=== PATIENT | female | born 1940 | race Caucasian/White ===

== ENCOUNTER 2020-11-18 07:29 | Emergency (ER) | payer MEDICARE, OTHER ==
[~2020-11-18] VITALS: Ht 154.9 cm; Wt 53.2 kg
[2020-11-18 08:57] LABS: BASOPHILS % (AUTO) 0.5 % (0-1); EOSINOPHILS % (AUTO) 0.2 % (0-6); HEMOGLOBIN 12.8 g/dl (12.0-16.0); LYMPHOCYTES # (AUTO) 0.5 X10'3 (1.1-4.8); LYMPHOCYTES % (AUTO) 5.3 % (21-51); MEAN CORPUSCULAR HEMOGLOBIN 29.5 PG (27.0-31.0); MEAN CORPUSCULAR HGB CONC 32.9 g/dL (33.0-36.5); MEAN CORPUSCULAR VOLUME 89.7 FL (78-98); MEAN PLATELET VOLUME 8.3 FL (7.4-10.4); MONOCYTES # (AUTO) 0.5 X10'3 (0-0.9); MONOCYTES % (AUTO) 4.7 % (2-12); NEUTROPHILS % (AUTO) 89.3 % (42-75); PLATELET COUNT 274 X10'3 (140-440); RED BLOOD COUNT 4.35 X10'6 (4.20-5.60); RED CELL DISTRIBUTION WIDTH 14.3 % (11.5-14.5); WHITE BLOOD COUNT 10.1 X10'3 (4.5-11.0)
[2020-11-18 09:16] LABS: ALANINE AMINOTRANSFERASE 20 U/L (12-78); ALBUMIN 3.3 G/DL (3.4-5.0); ALBUMIN/GLOBULIN RATIO 0.9 (1.1-1.5); ALKALINE PHOSPHATASE 79 IU/L (46-116); AMYLASE 52 U/L (25-115); ANION GAP 18 (8-16); ASPARTATE AMINO TRANSFERASE 15 U/L (10-37); BILIRUBIN,TOTAL 0.3 MG/DL (0.1-1.0); BLOOD UREA NITROGEN 22 MG/DL (7-18); BUN/CREATININE RATIO 13.1 (6.6-38.0); CALCIUM 10.5 MG/DL (8.5-10.1); CHLORIDE 102 MMOL/L (99-107); CREATININE 1.68 MG/DL (0.40-0.90); GLUCOSE 208 MG/DL (70-104); LIPASE 166 U/L (73-393); SODIUM 139 MMOL/L (135-145); TOTAL CARBON DIOXIDE 19.3 MMOL/L (24-32); TOTAL PROTEIN 7.1 G/DL (6.4-8.2); eGFR 29 ML/MIN
[2020-11-18 12:40] VITALS: BP 129/63
[2020-11-18 13:30] LABS: CLARITY,URINE CLEAR (Clear); COLOR,URINE YELLOW (Yellow); GLUCOSE, URINE NEGATIVE (Neg); KETONES,URINE TRACE mg/dl (Neg); LEUKOCYTE ESTERASE ,URINE NEGATIVE (Neg); NITRITES, URINE NEGATIVE (Neg); OCCULT BLOOD,URINE MODERATE (Neg); PH,URINE 5.5 (4.8-8.0); PROTEIN,URINE NEGATIVE (Neg); UROBILINOGEN,URINE 0.2 E.U/dL (0.2-1.0)
[2020-11-18 13:32] LABS: UA COLLECTION TYPE VOIDED
[2020-11-18 13:35] LABS: BACTERIA,URINE NONE SEEN /HPF (Neg); MUCUS STRANDS NONE SEEN /LPF (Neg); SQUAMOUS EPITHELIAL CELL,UR FEW /LPF (FEW); WBC,URINE 0-4 /HPF (0-4)
== END 2020-11-18 14:06 | disposition home or self-care (01) ==
LOC: ER 07:29
DX: N20.0 Calculus of kidney (principal); R10.30 Lower abdominal pain, unspecified; Z87.442 Personal history of urinary calculi
CPT/HCPCS: 36415; 74176; 80053; 81001; 82150; 83690; 85025; 99284

== ENCOUNTER 2022-09-22 22:12 | Emergency (ER) | payer MEDICARE, OTHER ==
[~2022-09-22] VITALS: Ht 154.9 cm; Wt 47.2 kg
[2022-09-22 22:15] VITALS: BP 175/77
[2022-09-22 23:17] LABS: BASOPHILS # (AUTO) 0.1 X10'3 (0-0.2); EOSINOPHILS # (AUTO) 0.1 X10'3 (0-0.9); EOSINOPHILS % (AUTO) 1.6 % (0-6); HEMATOCRIT 40.4 % (35.0-45.0); HEMOGLOBIN 13.4 g/dl (12.0-16.0); LYMPHOCYTES # (AUTO) 1.5 X10'3 (1.1-4.8); LYMPHOCYTES % (AUTO) 21.8 % (21-51); MEAN CORPUSCULAR HEMOGLOBIN 29.6 PG (27.0-31.0); MEAN CORPUSCULAR HGB CONC 33.1 g/dL (33.0-36.5); MEAN CORPUSCULAR VOLUME 89.3 FL (78-98); MEAN PLATELET VOLUME 8.7 FL (7.4-10.4); MONOCYTES # (AUTO) 0.6 X10'3 (0-0.9); MONOCYTES % (AUTO) 9.1 % (2-12); NEUTROPHILS # (AUTO) 4.5 X10'3 (1.8-7.7); NEUTROPHILS % (AUTO) 66.5 % (42-75); PLATELET COUNT 290 X10'3 (140-440); RED BLOOD COUNT 4.52 X10'6 (4.20-5.60); RED CELL DISTRIBUTION WIDTH 14.7 % (11.5-14.5); WHITE BLOOD COUNT 6.7 X10'3 (4.5-11.0)
[2022-09-22 23:34] LABS: ALANINE AMINOTRANSFERASE 20 U/L (12-78); ALBUMIN 3.9 G/DL (3.4-5.0); ALBUMIN/GLOBULIN RATIO 1.1 (1.1-1.5); ALKALINE PHOSPHATASE 68 IU/L (46-116); ANION GAP 15 (8-16); ASPARTATE AMINO TRANSFERASE 16 U/L (10-37); BILIRUBIN,TOTAL 0.4 MG/DL (0.1-1.0); BLOOD UREA NITROGEN 29 MG/DL (7-18); BUN/CREATININE RATIO 29.9 (10.0-20.0); CALCIUM 10.1 MG/DL (8.5-10.1); CHLORIDE 102 MMOL/L (99-107); CREATININE 0.97 MG/DL (0.40-0.90); GLUCOSE 122 MG/DL (70-104); LIPASE 196 U/L (73-393); POTASSIUM 4.2 MMOL/L (3.5-5.1); SODIUM 138 MMOL/L (135-145); TOTAL CARBON DIOXIDE 21.4 MMOL/L (24-32); TOTAL PROTEIN 7.4 G/DL (6.4-8.2); eGFR 55 ML/MIN
[2022-09-22 23:50] LABS: CLARITY,URINE CLEAR (Clear); COLOR,URINE YELLOW (Yellow); GLUCOSE, URINE NEGATIVE (Neg); KETONES,URINE 40 mg/dl (Neg); LEUKOCYTE ESTERASE ,URINE NEGATIVE (Neg); NITRITES, URINE NEGATIVE (Neg); OCCULT BLOOD,URINE NEGATIVE (Neg); PROTEIN,URINE NEGATIVE (Neg); UROBILINOGEN,URINE 0.2 E.U/dL (0.2-1.0)
[2022-09-22 23:51] LABS: UA COLLECTION TYPE CLN CATCH MIDSTREAM
[2022-09-24] MEDS ORDERED: METF-438 PO (11:00)
[2022-09-24] MEDS ORDERED: LOSA25TA96 PO (11:00)
[2022-09-24] MEDS ORDERED: SIMV-42 PO (11:00)
== END 2022-09-23 02:01 | disposition left against medical advice (07) ==
LOC: ER 22:12
DX: R10.9 Unspecified abdominal pain (principal); Z53.21 Procedure and treatment not carried out due to patient leaving prior to being seen by health care provider
CPT/HCPCS: 36415; 80053; 81003; 83690; 85025; 99281

== ENCOUNTER 2023-02-07 16:11 | Inpatient (IN) | payer MEDICARE, OTHER ==
[~2023-02-07] VITALS: Ht 154.9 cm; Wt 43.8 kg
[~2023-02-07 16:11] MED LIST: COR3.125T PO; METF-438 PO; SIMV-42 PO
[2023-02-07 18:28] LABS: BASOPHILS % (AUTO) 0.5 % (0-1); EOSINOPHILS % (AUTO) 0.3 % (0-6); HEMATOCRIT 40.6 % (35.0-45.0); HEMOGLOBIN 13.3 g/dl (12.0-16.0); MEAN CORPUSCULAR HEMOGLOBIN 28.7 PG (27.0-31.0); MEAN CORPUSCULAR HGB CONC 32.8 g/dL (33.0-36.5); MEAN CORPUSCULAR VOLUME 87.4 FL (78-98); MEAN PLATELET VOLUME 8.7 FL (7.4-10.4); MONOCYTES # (AUTO) 0.7 X10'3 (0-0.9); MONOCYTES % (AUTO) 8.9 % (2-12); NEUTROPHILS # (AUTO) 6.4 X10'3 (1.8-7.7); NEUTROPHILS % (AUTO) 78.3 % (42-75); PLATELET COUNT 337 X10'3 (140-440); RED BLOOD COUNT 4.65 X10'6 (4.20-5.60); RED CELL DISTRIBUTION WIDTH 13.6 % (11.5-14.5); WHITE BLOOD COUNT 8.2 X10'3 (4.5-11.0)
[2023-02-07 18:33] LABS: ALANINE AMINOTRANSFERASE 15 U/L (12-78); ALBUMIN 3.7 G/DL (3.4-5.0); ALKALINE PHOSPHATASE 63 IU/L (46-116); ANION GAP 10 (8-16); ASPARTATE AMINO TRANSFERASE 15 U/L (10-37); BILIRUBIN,TOTAL 0.4 MG/DL (0.1-1.0); BLOOD UREA NITROGEN 22 MG/DL (7-18); BUN/CREATININE RATIO 16.5 (10.0-20.0); CALCIUM 10.7 MG/DL (8.5-10.1); CHLORIDE 96 MMOL/L (99-107); CREATININE 1.33 MG/DL (0.40-0.90); GLUCOSE 140 MG/DL (70-104); LIPASE 53 U/L (16-77); POTASSIUM 4.7 MMOL/L (3.5-5.1); SODIUM 129 MMOL/L (135-145); TOTAL CARBON DIOXIDE 22.9 MMOL/L (24-32); TOTAL PROTEIN 7.5 G/DL (6.4-8.2); eCRCL 21 ML/MIN; eGFR 38 ML/MIN
[2023-02-07] MEDS ORDERED: normal saline 1000ML IV soln IVB ONE (22:05)
[2023-02-07] MEDS ORDERED: ondansetron/PF 4mg/2ml inj IV ONE (22:05)
[2023-02-07] MEDS ORDERED: morphine 4 MG/ML inj SYRINge IV ONE (22:05)
[2023-02-08] MEDS ORDERED: acetaminophen 325mg tablet PO PRN ×2 (00:05)
[2023-02-08] MEDS ORDERED: bisacodyl 10mg suppository rectal RC PRN (00:05)
[2023-02-08] MEDS ORDERED: acetaminophen 650mg rectal suppository RC PRN (00:05)
[2023-02-08] MEDS ORDERED: ondansetron/PF 4mg/2ml inj IV PRN (00:05)
[2023-02-08] MEDS ORDERED: diphenhydrAMINE 25mg capsule PO PRN (00:05)
[2023-02-08] MEDS ORDERED: ondansetron 4mg rapidly disintigrating tab PO PRN (00:05)
[2023-02-08] MEDS ORDERED: magnesium hydroxide 30ml (MOM) UD suspension PO PRN (00:05)
[2023-02-08] MEDS ORDERED: HYDROcodone/acetaminophen 5mg/325mg tablet PO PRN (00:05)
[2023-02-08] MEDS ORDERED: mag hydrox/Alum hydrox/simeth 30ml oral suspension PO PRN (00:05)
[2023-02-08] MEDS ORDERED: diphenhydrAMINE 50 mg/ml inj IV PRN (00:05)
[2023-02-08] MEDS ORDERED: morphine 2 MG/ML inj. syringe IV PRN (00:05)
[2023-02-08] MEDS ORDERED: insulin Lispro (HumaLOG) vial - multi-dose SQ SCH (00:10)
[2023-02-08] MEDS ORDERED: glucagon, human recombinant 1mg kit SUBCUT PRN (00:10)
[2023-02-08] MEDS ORDERED: MESSAGE TO PHARMACY PO ONE (00:10)
[2023-02-08] MEDS ORDERED: DEXTROSE 15 GM of carb/4 tabs (each vial/BOTTLE has 4 tablets) PO PRN ×2 (00:10)
[2023-02-08] MEDS ORDERED: dextrose 50%-water 50ml dispensing syringe IV PRN ×2 (00:10)
[2023-02-08] MEDS: normal saline 1000ml 1,000 ML IV SCH ×3 (01:29→15:04)
[2023-02-08 03:20] LABS: HEMOGLOBIN A1C 6.2 % (4.5-6.2)
[2023-02-08 03:21] LABS: APTT 25 SECONDS (22-32); PROTHROMBIN TIME 10.9 SECONDS (9.0-12.0)
[2023-02-08 03:33] LABS: CREATINE KINASE 27 U/L (26-192); PHOSPHORUS 4.9 MG/DL (2.3-4.5); PRO BRAIN NATRIURETIC PEPTIDE 345 PG/ML (0-450); THYROID STIMULATING HORMONE 1.47 ulU/ml (0.34-4.50)
[2023-02-08 05:39] LABS: BILIRUBIN,URINE NEGATIVE (Neg); CLARITY,URINE CLEAR (Clear); COLOR,URINE YELLOW (Yellow); GLUCOSE, URINE NEGATIVE (Neg); KETONES,URINE 15 mg/dl (Neg); LEUKOCYTE ESTERASE ,URINE NEGATIVE (Neg); NITRITES, URINE NEGATIVE (Neg); OCCULT BLOOD,URINE NEGATIVE (Neg); PROTEIN,URINE NEGATIVE (Neg); UROBILINOGEN,URINE 0.2 E.U/dL (0.2-1.0)
[2023-02-08 05:41] LABS: UA COLLECTION TYPE CLN CATCH MIDSTREAM
[2023-02-08] MEDS ORDERED: docusate sod 100mg capsule PO SCH (08:00)
[2023-02-08] MEDS: pantoprazole 40MG/NS 100ML BAG 100 ML IV SCH (08:26)
[2023-02-08] MEDS ORDERED: docusate sodium 100mg/10ml UD cup NG SCH (08:36)
[2023-02-08 08:45] VITALS: RESP 16
[2023-02-08 09:13] VITALS: BP 124/58; PULSE 81; RESP 20; TEMP 99; O2SAT 94
[2023-02-08 10:00] VITALS: BP 139/55; PULSE 82; RESP 18; TEMP 97.7; O2SAT 93
[2023-02-08 19:35] LABS: BASOPHILS # (AUTO) 0.2 X10'3 (0-0.2); BASOPHILS % (AUTO) 1.9 % (0-1); EOSINOPHILS % (AUTO) 0.5 % (0-6); HEMOGLOBIN 11.7 g/dl (12.0-16.0); LYMPHOCYTES # (AUTO) 0.7 X10'3 (1.1-4.8); LYMPHOCYTES % (AUTO) 7.6 % (21-51); MEAN CORPUSCULAR HEMOGLOBIN 29.2 PG (27.0-31.0); MEAN CORPUSCULAR HGB CONC 33.5 g/dL (33.0-36.5); MEAN CORPUSCULAR VOLUME 87.1 FL (78-98); MEAN PLATELET VOLUME 8.4 FL (7.4-10.4); MONOCYTES # (AUTO) 0.7 X10'3 (0-0.9); MONOCYTES % (AUTO) 7.8 % (2-12); NEUTROPHILS # (AUTO) 7.6 X10'3 (1.8-7.7); NEUTROPHILS % (AUTO) 82.2 % (42-75); PLATELET COUNT 270 X10'3 (140-440); RED BLOOD COUNT 4.02 X10'6 (4.20-5.60); WHITE BLOOD COUNT 9.2 X10'3 (4.5-11.0)
[2023-02-08 19:49] LABS: ALANINE AMINOTRANSFERASE 10 U/L (12-78); ALBUMIN 2.9 G/DL (3.4-5.0); ALKALINE PHOSPHATASE 51 IU/L (46-116); ANION GAP 10 (8-16); ASPARTATE AMINO TRANSFERASE 14 U/L (10-37); BILIRUBIN,TOTAL 0.3 MG/DL (0.1-1.0); BLOOD UREA NITROGEN 14 MG/DL (7-18); BUN/CREATININE RATIO 16.5 (10.0-20.0); CALCIUM 8.8 MG/DL (8.5-10.1); CHLORIDE 104 MMOL/L (99-107); CREATININE 0.85 MG/DL (0.40-0.90); GLUCOSE 140 MG/DL (70-104); POTASSIUM 3.8 MMOL/L (3.5-5.1); SODIUM 135 MMOL/L (135-145); TOTAL PROTEIN 5.8 G/DL (6.4-8.2); eCRCL 33 ML/MIN; eGFR 64 ML/MIN
[2023-02-08] MEDS ORDERED: temazepam 15mg capsule PO PRN (21:00)
[2023-02-08 22:00] VITALS: BP 127/91; PULSE 79; RESP 14; TEMP 98.3; O2SAT 98
[2023-02-09] MEDS: normal saline 1000ml 1,000 ML IV SCH (04:44)
[2023-02-09 05:50] LABS: BASOPHILS % (AUTO) 0.4 % (0-1); EOSINOPHILS % (AUTO) 0.6 % (0-6); HEMATOCRIT 35.8 % (35.0-45.0); HEMOGLOBIN 11.9 g/dl (12.0-16.0); LYMPHOCYTES # (AUTO) 0.8 X10'3 (1.1-4.8); LYMPHOCYTES % (AUTO) 10.3 % (21-51); MEAN CORPUSCULAR HEMOGLOBIN 29.3 PG (27.0-31.0); MEAN CORPUSCULAR HGB CONC 33.3 g/dL (33.0-36.5); MEAN PLATELET VOLUME 8.9 FL (7.4-10.4); MONOCYTES # (AUTO) 0.7 X10'3 (0-0.9); NEUTROPHILS # (AUTO) 5.9 X10'3 (1.8-7.7); NEUTROPHILS % (AUTO) 78.7 % (42-75); PLATELET COUNT 259 X10'3 (140-440); RED BLOOD COUNT 4.07 X10'6 (4.20-5.60); RED CELL DISTRIBUTION WIDTH 13.8 % (11.5-14.5); WHITE BLOOD COUNT 7.5 X10'3 (4.5-11.0)
[2023-02-09 05:54] LABS: ALANINE AMINOTRANSFERASE 11 U/L (12-78); ALBUMIN 2.9 G/DL (3.4-5.0); ALKALINE PHOSPHATASE 51 IU/L (46-116); ANION GAP 12 (8-16); ASPARTATE AMINO TRANSFERASE 14 U/L (10-37); BILIRUBIN,TOTAL 0.3 MG/DL (0.1-1.0); BLOOD UREA NITROGEN 11 MG/DL (7-18); BUN/CREATININE RATIO 15.3 (10.0-20.0); CHLORIDE 104 MMOL/L (99-107); CREATININE 0.72 MG/DL (0.40-0.90); GLUCOSE 133 MG/DL (70-104); POTASSIUM 4.2 MMOL/L (3.5-5.1); SODIUM 136 MMOL/L (135-145); TOTAL CARBON DIOXIDE 20.1 MMOL/L (24-32); TOTAL PROTEIN 5.9 G/DL (6.4-8.2); eCRCL 40 ML/MIN; eGFR 77 ML/MIN
[2023-02-09 06:00] VITALS: BP 149/65; PULSE 73; RESP 16; TEMP 99.1; O2SAT 98
[2023-02-09] MEDS: pantoprazole 40MG/NS 100ML BAG 100 ML IV SCH (08:04)
[2023-02-09 08:05] VITALS: RESP 16; O2SAT 98
[2023-02-09 10:00] VITALS: BP 98/62; PULSE 86; RESP 20; TEMP 98.3; O2SAT 96
[2023-02-09] MEDS: carVEDilol 3.125mg tablet PO SCH ×2 (11:52→19:38)
[2023-02-09 12:22] VITALS: BP 153/74; PULSE 86; RESP 14; TEMP 98.4; O2SAT 96
[2023-02-09 18:00] VITALS: BP 160/82; PULSE 76; RESP 11; TEMP 98.3; O2SAT 99
[2023-02-09 22:00] VITALS: BP 141/100; PULSE 80; RESP 15; TEMP 98.3; O2SAT 99
[2023-02-10] MEDS: normal saline 1000ml 1,000 ML IV SCH ×2 (04:42→10:11)
[2023-02-10 06:00] VITALS: BP 148/77; PULSE 74; RESP 14; TEMP 98.6; O2SAT 97
[2023-02-10 06:26] LABS: ALANINE AMINOTRANSFERASE 11 U/L (12-78); ALBUMIN 2.6 G/DL (3.4-5.0); ALBUMIN/GLOBULIN RATIO 0.9 (1.1-1.5); ALKALINE PHOSPHATASE 45 IU/L (46-116); ANION GAP 12 (8-16); ASPARTATE AMINO TRANSFERASE 11 U/L (10-37); BILIRUBIN,TOTAL 0.3 MG/DL (0.1-1.0); BLOOD UREA NITROGEN 12 MG/DL (7-18); BUN/CREATININE RATIO 18.8 (10.0-20.0); CALCIUM 8.6 MG/DL (8.5-10.1); CHLORIDE 106 MMOL/L (99-107); CREATININE 0.64 MG/DL (0.40-0.90); GLUCOSE 95 MG/DL (70-104); POTASSIUM 3.5 MMOL/L (3.5-5.1); SODIUM 137 MMOL/L (135-145); TOTAL CARBON DIOXIDE 19.4 MMOL/L (24-32); TOTAL PROTEIN 5.5 G/DL (6.4-8.2); eCRCL 44 ML/MIN; eGFR 88 ML/MIN
[2023-02-10 06:36] LABS: BASOPHILS % (AUTO) 0.5 % (0-1); EOSINOPHILS # (AUTO) 0.1 X10'3 (0-0.9); EOSINOPHILS % (AUTO) 1.4 % (0-6); HEMOGLOBIN 11.9 g/dl (12.0-16.0); LYMPHOCYTES # (AUTO) 1.2 X10'3 (1.1-4.8); LYMPHOCYTES % (AUTO) 13.5 % (21-51); MEAN CORPUSCULAR HEMOGLOBIN 29.7 PG (27.0-31.0); MEAN CORPUSCULAR HGB CONC 33.9 g/dL (33.0-36.5); MEAN CORPUSCULAR VOLUME 87.6 FL (78-98); MEAN PLATELET VOLUME 8.8 FL (7.4-10.4); MONOCYTES # (AUTO) 0.8 X10'3 (0-0.9); NEUTROPHILS # (AUTO) 6.5 X10'3 (1.8-7.7); NEUTROPHILS % (AUTO) 75.6 % (42-75); PLATELET COUNT 263 X10'3 (140-440); RED CELL DISTRIBUTION WIDTH 13.9 % (11.5-14.5); WHITE BLOOD COUNT 8.6 X10'3 (4.5-11.0)
[2023-02-10 10:00] VITALS: BP 114/78; PULSE 84; RESP 18; TEMP 98.2; O2SAT 98
[2023-02-10] MEDS: pantoprazole 40MG/NS 100ML BAG 100 ML IV SCH (10:10)
[2023-02-10] MEDS: carVEDilol 3.125mg tablet PO SCH ×2 (10:11→19:54)
[2023-02-10] MEDS: atorvastatin 20mg tablet PO SCH (10:11)
[2023-02-10] MEDS ORDERED: LOSA25TA41 PO (13:09)
[2023-02-10] MEDS ORDERED: OXYB5TAB16 PO (13:09)
[2023-02-10 18:00] VITALS: BP 149/42; PULSE 67; RESP 16; TEMP 98.1; O2SAT 93
[2023-02-10 20:00] VITALS: RESP 16; O2SAT 98
[2023-02-10] MEDS ORDERED: DEXTROSE 15 GM of carb/4 tabs (each vial/BOTTLE has 4 tablets) PO PRN ×2 (20:30)
[2023-02-10] MEDS ORDERED: dextrose 50%-water 50ml dispensing syringe IV PRN ×2 (20:30)
[2023-02-10] MEDS ORDERED: glucagon, human recombinant 1mg kit SUBCUT PRN (20:30)
[2023-02-10 22:00] VITALS: BP 127/55; PULSE 66; RESP 18; TEMP 97.4; O2SAT 98
[2023-02-11] MEDS: dextrose 5%-normal saline 1,000 ML IV SCH ×2 (05:04→18:15)
[2023-02-11 06:00] VITALS: BP 137/66; PULSE 79; RESP 14; TEMP 97.4; O2SAT 98
[2023-02-11 06:49] LABS: BASOPHILS # (AUTO) 0.1 X10'3 (0-0.2); BASOPHILS % (AUTO) 0.7 % (0-1); EOSINOPHILS # (AUTO) 0.2 X10'3 (0-0.9); EOSINOPHILS % (AUTO) 2.2 % (0-6); HEMATOCRIT 33.4 % (35.0-45.0); HEMOGLOBIN 11.2 g/dl (12.0-16.0); LYMPHOCYTES % (AUTO) 12.4 % (21-51); MEAN CORPUSCULAR HEMOGLOBIN 29.5 PG (27.0-31.0); MEAN CORPUSCULAR HGB CONC 33.5 g/dL (33.0-36.5); MEAN CORPUSCULAR VOLUME 87.9 FL (78-98); MEAN PLATELET VOLUME 8.4 FL (7.4-10.4); MONOCYTES # (AUTO) 0.7 X10'3 (0-0.9); MONOCYTES % (AUTO) 8.6 % (2-12); NEUTROPHILS # (AUTO) 6.1 X10'3 (1.8-7.7); NEUTROPHILS % (AUTO) 76.1 % (42-75); PLATELET COUNT 249 X10'3 (140-440); WHITE BLOOD COUNT 8.1 X10'3 (4.5-11.0)
[2023-02-11 07:13] LABS: ALANINE AMINOTRANSFERASE 10 U/L (12-78); ALBUMIN 2.4 G/DL (3.4-5.0); ALBUMIN/GLOBULIN RATIO 0.9 (1.1-1.5); ALKALINE PHOSPHATASE 42 IU/L (46-116); ANION GAP 12 (8-16); ASPARTATE AMINO TRANSFERASE 15 U/L (10-37); BILIRUBIN,TOTAL 0.4 MG/DL (0.1-1.0); BLOOD UREA NITROGEN 14 MG/DL (7-18); CALCIUM 8.4 MG/DL (8.5-10.1); CHLORIDE 110 MMOL/L (99-107); CREATININE 0.56 MG/DL (0.40-0.90); GLUCOSE 93 MG/DL (70-104); POTASSIUM 3.3 MMOL/L (3.5-5.1); SODIUM 139 MMOL/L (135-145); TOTAL CARBON DIOXIDE 17.5 MMOL/L (24-32); TOTAL PROTEIN 5.2 G/DL (6.4-8.2); eCRCL 51 ML/MIN; eGFR > 90 ML/MIN
[2023-02-11] MEDS ORDERED: potassium Cl 40MEQ/1/2NS 520ml 520 ML IV PRN (07:45)
[2023-02-11] MEDS ORDERED: magnesium 4gm in 100ml NS 100 ML IV PRN (07:45)
[2023-02-11] MEDS ORDERED: potassium Cl 20 mEq SR tablet PO PRN ×2 (07:45)
[2023-02-11] MEDS ORDERED: magnesium 2GM in 50ml NS 50 ML IV PRN (07:45)
[2023-02-11] MEDS ORDERED: magnesium Cl slow-release 64mg tablet PO PRN (07:45)
[2023-02-11] MEDS: K and/or MAG REPLACEMENT MC SCH ×2 (08:00→20:00)
[2023-02-11 08:11] LABS: MAGNESIUM 1.6 MG/DL (1.5-2.4)
[2023-02-11 10:00] VITALS: BP 151/55; PULSE 74; RESP 12; TEMP 98.8; O2SAT 100
[2023-02-11] MEDS: atorvastatin 20mg tablet PO SCH (11:14)
[2023-02-11] MEDS: carVEDilol 3.125mg tablet PO SCH ×2 (11:14→21:01)
[2023-02-11] MEDS: pantoprazole 40MG/NS 100ML BAG 100 ML IV SCH (11:23)
[2023-02-11 18:00] VITALS: BP 112/64; PULSE 71; RESP 16; TEMP 97.9; O2SAT 99
[2023-02-11 20:00] VITALS: RESP 16; O2SAT 99
[2023-02-11] MEDS ORDERED: POTASSIUM BICARB 20meq eff tab 20 MEQ TABLET.EFF PO PRN (20:20)
[2023-02-11] MEDS: diatr meglu/diatrizoate 30ml oral sol.-(3 dose) bottle PO SCH (21:01)
[2023-02-11 22:00] VITALS: BP 137/53; PULSE 57; RESP 18; TEMP 98.1; O2SAT 99
[2023-02-12 06:00] VITALS: BP 144/62; PULSE 64; TEMP 97.5; O2SAT 98
[2023-02-12 07:06] LABS: BASOPHILS % (AUTO) 0.6 % (0-1); EOSINOPHILS # (AUTO) 0.3 X10'3 (0-0.9); EOSINOPHILS % (AUTO) 4.8 % (0-6); HEMOGLOBIN 11.3 g/dl (12.0-16.0); LYMPHOCYTES # (AUTO) 1.3 X10'3 (1.1-4.8); LYMPHOCYTES % (AUTO) 20.2 % (21-51); MEAN CORPUSCULAR HGB CONC 33.3 g/dL (33.0-36.5); MEAN CORPUSCULAR VOLUME 87.2 FL (78-98); MEAN PLATELET VOLUME 8.1 FL (7.4-10.4); MONOCYTES # (AUTO) 0.7 X10'3 (0-0.9); MONOCYTES % (AUTO) 11.5 % (2-12); NEUTROPHILS # (AUTO) 3.9 X10'3 (1.8-7.7); NEUTROPHILS % (AUTO) 62.9 % (42-75); PLATELET COUNT 249 X10'3 (140-440); RED CELL DISTRIBUTION WIDTH 14.5 % (11.5-14.5); WHITE BLOOD COUNT 6.2 X10'3 (4.5-11.0)
[2023-02-12] MEDS: diatr meglu/diatrizoate 30ml oral sol.-(3 dose) bottle PO SCH ×2 (07:08→09:40)
[2023-02-12] MEDS: carVEDilol 3.125mg tablet PO SCH (07:08)
[2023-02-12] MEDS: atorvastatin 20mg tablet PO SCH (07:08)
[2023-02-12 07:18] LABS: ALANINE AMINOTRANSFERASE 12 U/L (12-78); ALBUMIN 2.4 G/DL (3.4-5.0); ALBUMIN/GLOBULIN RATIO 0.9 (1.1-1.5); ALKALINE PHOSPHATASE 42 IU/L (46-116); ANION GAP 7 (8-16); ASPARTATE AMINO TRANSFERASE 20 U/L (10-37); BILIRUBIN,TOTAL 0.3 MG/DL (0.1-1.0); BLOOD UREA NITROGEN 9 MG/DL (7-18); BUN/CREATININE RATIO 14.5 (10.0-20.0); CALCIUM 8.6 MG/DL (8.5-10.1); CHLORIDE 108 MMOL/L (99-107); CREATININE 0.62 MG/DL (0.40-0.90); GLUCOSE 137 MG/DL (70-104); MAGNESIUM 1.7 MG/DL (1.5-2.4); POTASSIUM 3.5 MMOL/L (3.5-5.1); SODIUM 138 MMOL/L (135-145); TOTAL PROTEIN 5.2 G/DL (6.4-8.2); eCRCL 46 ML/MIN; eGFR > 90 ML/MIN
[2023-02-12] MEDS: dextrose 5%-normal saline 1,000 ML IV SCH (07:42)
[2023-02-12 08:00] VITALS: RESP 16; RESP 18; O2SAT 96
[2023-02-12] MEDS ORDERED: pantoprazole 40mg Tablet.DR PO SCH (08:00)
[2023-02-12] MEDS: K and/or MAG REPLACEMENT MC SCH (08:00)
[2023-02-12 10:00] VITALS: BP 156/69; PULSE 58; RESP 16; TEMP 98.4; O2SAT 93
[2023-02-12] MEDS ORDERED: MAGN200T8 PO (13:02)
[2023-02-12] MEDS ORDERED: SIME80TA15 PO (13:02)
[2023-02-12] MEDS ORDERED: POTA-206 PO (13:02)
[2023-02-12] MEDS ORDERED: COR3.125T PO (13:02)
[2023-02-12] MEDS ORDERED: METF-436 PO (13:04)
== END 2023-02-12 14:30 | disposition home health service (06) | DRG 388 ==
LOC: ER 16:11 → ED HOLD 02-08 00:09 → ORTHO 4S 02-08 07:45
PROVIDERS: ADMIT Family Medicine; ATTEND Internal Medicine
PROC: 0D9670Z Drainage of Stomach with Drainage Device, Via Natural or Artificial Opening (ICD-10-PCS; principal; 2023-02-07)
DX: K56.609 Unspecified intestinal obstruction, unspecified as to partial versus complete obstruction (principal); E43 Unspecified severe protein-calorie malnutrition; N17.9 Acute kidney failure, unspecified; Z68.1 Body mass index [BMI] 19.9 or less, adult; I50.32 Chronic diastolic (congestive) heart failure; E87.1 Hypo-osmolality and hyponatremia; I48.91 Unspecified atrial fibrillation; E11.65 Type 2 diabetes mellitus with hyperglycemia; E78.00 Pure hypercholesterolemia, unspecified; F03.90 Unspecified dementia, unspecified severity, without behavioral disturbance, psychotic disturbance, mood disturbance, and anxiety; I11.0 Hypertensive heart disease with heart failure; Z85.42 Personal history of malignant neoplasm of other parts of uterus; Z91.041 Radiographic dye allergy status; Z90.710 Acquired absence of both cervix and uterus; Z98.891 History of uterine scar from previous surgery; Z87.440 Personal history of urinary (tract) infections; Z79.899 Other long term (current) drug therapy; Z79.84 Long term (current) use of oral hypoglycemic drugs
CPT/HCPCS: 36415; 70450; 71045; 74176; 80053; 81003; 82550; 82948; 83036; 83605; 83690; 83735; 83880; 84100; 84443; 84484; 85025; 85610; 85730; 87081; 97161; 97530; 99285; A6212; C9113; G0378; J1815; J2270; J2405; J3490; J7030; J7042; J7070; Q9963

== ENCOUNTER 2024-07-13 15:14 | Emergency (ER) | payer MEDICARE, OTHER ==
[~2024-07-13] VITALS: Ht 162.6 cm; Wt 50.0 kg
[~2024-07-13 15:14] MED LIST changes: +CARV3.1232 PO; -COR3.125T PO; +LOSA25TA41 PO; +MAGN200T8 PO; +OXYB5TAB21 PO; +POTA-206 PO
--- NOTE | 2024-07-13 16:40 | Physician Documentation ---
History of Present Illness ~ Chief Complaint: Bloody Stools Stated Complaint: R KNEE PAIN Time Seen by MD: 19:01 Primary Medical Doctor: WILLIAMS GREGORY HPI This 84-year-old female presents with 2-3 days of generalized abdominal pain along with one month of dark tarry stools. Patient additionally reports she has had chronic pain to her right knee and hip for the past three months which he has been taking [place] for and working with her primary care doctor. Also endorses taking 800 mg of ibuprofen regularly. Patient was history of GI bleeds and it was seen here a proximally 2-1/2 years ago with a very low platelets and anemia. She was a [employer] and refused all blood products it was sent home on hospice however she was done well up until this point. She was not on blood thinners Medication Reconciliation Allergies: Uncoded Allergies: CONTRAST DYE (Allergy, Intermediate, HIVES, 11/18/20) Scheduled Carvedilol (Carvedilol), 3.125 MG PO BID Losartan Potassium (Losartan Potassium), 1 TAB PO DAILY, (Reported) Magnesium Oxide (Mag-Oxide), 1 TAB PO DAILY Metformin HCl (Metformin HCl), 1 TAB PO BID, (Reported) Oxybutynin Chloride (Oxybutynin Chloride), 1 TAB PO BID, (Reported) Potassium Chloride (K-Dur), 1 TAB PO DAILY Simvastatin* (Zocor*), 1 TAB PO HS, (Reported) Past Medical History Past Medical History: High Cholesterol, Hypertension, Bowel Obstruction, Kidney Stones, UTI, Diabetes, *CANCER* Past Surgical History: abdominal surgery, , hysterectomy, orthopedic surgeries, other Patient History: CVA FH: colon cancer FH: mental illness MOTHER, Alcohol Use: None Drug Use: none Lives with: Spouse Lives In: Home Occupation: retired Review of Systems ROS All review of systems negative except as per HPI Physical Exam Vital Signs: Temperature: 97.6, Source: Temporal, Heart Rate: 76, Respiratory Rate: 18, BP: 139/109, Pulse Oximetry: 98, Weight: 50.000 Physical Exam General: Patient is awake, alert, oriented x4 in no acute distress Head: Normocephalic and atraumatic. Eyes: Conjunctival normal. EOMI. PERRL. ENT: Mucous membranes moist. Neck: Supple, trachea is midline. Chest: Clear to auscultation bilaterally without rales, rhonchi, or wheezes. There is no accessory muscle use or retractions. Cardiac: RRR without murmurs, gallops, or rubs. Abd: Soft, nondistended, mild diffuse tenderness to palpation without peritonitis Extremity: Right lower extremity with 2+ dorsalis pedis pulse and no deformity however pain with manipulation of both knee and hip. : Good rectal tone, black stools, guaiac negative Progress Results/Orders Results/Orders Orders - KENNETH CURRAN MD Ct Abdomen Pelvis (07/13/24 20:05) Completed Orders - KENNETH CURRAN MD Ondansetron Inj. (Zofran 4mg/2ml Vial) (07/13/24 19:20) Fentanyl/Pf (Fentanyl 0.05 Mg/Ml Syringe (07/13/24 19:20) Acetaminophen 1,000mg/100ml Iv (Ofirmev (07/13/24 19:20) Ct Abdomen Pelvis (07/13/24 20:05) Medications Received in ER Medications (Trade) Dose Ordered Sig/Sylvia Route PRN Reason Start Time Stop Time Status Last Admin Dose Admin (Zofran 4mg/2ml vial) 4 mg ONCE ONCE IV 07/13/24 19:20 07/13/24 19:21 DC 07/13/24 19:35 4 MG (fentaNYL 0.05 MG/ML syringe) 25 mcg ONCE ONCE IV 07/13/24 19:20 07/13/24 19:21 DC 07/13/24 19:36 25 MCG Acetaminophen 100 ml @ 400 mls/hr ONCE ONCE IV 07/13/24 19:20 07/13/24 19:34 DC 07/13/24 19:36 400 MLS/HR Vital Signs 07/13/24 07/13/24 07/13/24 07/13/24 15:50 18:46 18:50 19:43 Temp 97.6 Pulse 76 73 69 Resp 18 15 16 17 B/P (MAP) 139/109 151/95 (113) 151/63 (92) Pulse Ox 98 99 99 07/13/24 20:53 Resp 14 Laboratory Tests Test 07/13/24 16:59 07/13/24 19:03 White Blood Count 6.4 Red Blood Count 4.43 Hemoglobin 13.3 Hematocrit 39.6 Mean Corpuscular Volume 89.4 Mean Corpuscular Hemoglobin 29.9 Mean Corpuscular Hemoglobin Concent 33.5 Red Cell Distribution Width 13.8 Platelet Count 269 Mean Platelet Volume 8.0 Neutrophils (%) (Auto) 53.6 Lymphocytes (%) (Auto) 34.7 Monocytes (%) (Auto) 8.3 Eosinophils (%) (Auto) 2.1 Basophils (%) (Auto) 1.3 H Neutrophils # (Auto) 3.4 Lymphocytes # (Auto) 2.2 Monocytes # (Auto) 0.5 Eosinophils # (Auto) 0.1 Basophils # (Auto) 0.1 CBC Comment Basophilic Stippling Sodium Level 140 Potassium Level 3.8 Chloride Level 107 Carbon Dioxide Level 21.2 L Anion Gap 12 Blood Urea Nitrogen 14 Creatinine 0.92 H Estimated GFR/1.73 m2 58 BUN/Creatinine Ratio 15.2 Glucose Level 114 H Calcium Level 9.5 Total Bilirubin 0.6 Aspartate Amino Transf (AST/SGOT) 21 Alanine Aminotransferase (ALT/SGPT) 21 Alkaline Phosphatase 63 Total Protein 7.3 Albumin 3.9 Globulin 3.4 Albumin/Globulin Ratio 1.1 Lipase 36 Chemistry Comments Urine Specimen Description Cln catch midstream Urine Color Yellow Urine Clarity Cloudy Urine pH 7.5 Urine Specific [place] 1.020 Urine Protein 30 H Urine Glucose (UA) Negative Urine Ketones >=80 Urine Occult Blood Trace-intact Urine Nitrite Negative Urine Bilirubin Negative Urine Urobilinogen 0.2 Urine Leukocyte Esterase Trace H Urine RBC 3-10 Urine WBC 5-10 H Urine Squamous Epithelial Cells Few Urine Amorphous Phosphates 4+ Urine Bacteria 1+ Urine Culture Indicated Indicated Volume Urine Centrifuged 10 ml Urine Comment Microbiology Date/Time Source Procedure Growth Status 07/13/24 19:22 Urine Clean Catch Midstream Urine Culture - Preliminary Culture received. Resulted Medical Decision Making Findings Patient presented to the emergency room with chronic leg pain as well as concerns for black stools. Differentials include but are not limited to upper GI bleed, medication side effect, lower GI bleed, anemia therefore emergent labs ordered. Labs were reassuring for no anemia or elevation of BUN. Guaiac negative and with these three findings I do not feel patient was suffering from GI bleed. Patient was being supplemented iron which could be contributing to patient's color of stool. Patient has scheduled appointment for hip injection tomorrow. I do not feel she requires emergent investigation into her chronic hip pain. Departure Disposition: HOME / SELF CARE / HOMELESS Impression: Primary Impression: Change in stool Additional Impression: Hip pain Condition: Stable Discharge Instructions: Stool for Occult Blood Test Additional Instructions: Your stool test for blood today was negative. Your labs were reassuring for no evidence of gastrointestinal bleeding. Follow up pain management with your doctor Referrals: NO PRIMARY CARE PROVIDER (PCP) Education Educated: Patient, Family Educated regarding: diagnosis, treatment, need for follow up Signature Scribe Signature: No scribe Attestation: The note accurately reflects work and decisions made by me.Kenneth Curran MD 07/13/24 21:43 TARIK MULLIGAN Jul 13, 2024 16:40 KENNETH CURRAN MD Jul 13, 2024 19:15
[2024-07-13 17:11] LABS: BASOPHILS # (AUTO) 0.1 X10'3 (0-0.2); BASOPHILS % (AUTO) 1.3 % (0-1); EOSINOPHILS # (AUTO) 0.1 X10'3 (0-0.9); EOSINOPHILS % (AUTO) 2.1 % (0-6); HEMATOCRIT 39.6 % (35.0-45.0); HEMOGLOBIN 13.3 g/dl (12.0-16.0); LYMPHOCYTES # (AUTO) 2.2 X10'3 (1.1-4.8); LYMPHOCYTES % (AUTO) 34.7 % (21-51); MEAN CORPUSCULAR HEMOGLOBIN 29.9 PG (27.0-31.0); MEAN CORPUSCULAR HGB CONC 33.5 g/dL (33.0-36.5); MEAN CORPUSCULAR VOLUME 89.4 FL (78-98); MONOCYTES # (AUTO) 0.5 X10'3 (0-0.9); MONOCYTES % (AUTO) 8.3 % (2-12); NEUTROPHILS # (AUTO) 3.4 X10'3 (1.8-7.7); NEUTROPHILS % (AUTO) 53.6 % (42-75); PLATELET COUNT 269 X10'3 (140-440); RED BLOOD COUNT 4.43 X10'6 (4.20-5.60); RED CELL DISTRIBUTION WIDTH 13.8 % (11.5-14.5); WHITE BLOOD COUNT 6.4 X10'3 (4.5-11.0)
[2024-07-13 17:29] LABS: ALANINE AMINOTRANSFERASE 21 U/L (12-78); ALBUMIN 3.9 G/DL (3.4-5.0); ALBUMIN/GLOBULIN RATIO 1.1 (1.1-1.5); ALKALINE PHOSPHATASE 63 IU/L (46-116); ANION GAP 12 (8-16); ASPARTATE AMINO TRANSFERASE 21 U/L (10-37); BILIRUBIN,TOTAL 0.6 MG/DL (0.1-1.0); BLOOD UREA NITROGEN 14 MG/DL (7-18); BUN/CREATININE RATIO 15.2 (10.0-20.0); CALCIUM 9.5 MG/DL (8.5-10.1); CHLORIDE 107 MMOL/L (99-107); CREATININE 0.92 MG/DL (0.40-0.90); GLUCOSE 114 MG/DL (70-104); LIPASE 36 U/L (16-77); POTASSIUM 3.8 MMOL/L (3.5-5.1); SODIUM 140 MMOL/L (135-145); TOTAL CARBON DIOXIDE 21.2 MMOL/L (24-32); TOTAL PROTEIN 7.3 G/DL (6.4-8.2); eCRCL 35 ML/MIN; eGFR 58 ML/MIN
[2024-07-13 19:11] LABS: BILIRUBIN,URINE NEGATIVE (Neg); COLOR,URINE YELLOW (Yellow); GLUCOSE, URINE NEGATIVE (Neg); KETONES,URINE >=80 mg/dl (Neg); LEUKOCYTE ESTERASE ,URINE TRACE (Neg); NITRITES, URINE NEGATIVE (Neg); OCCULT BLOOD,URINE TRACE-INTACT (Neg); PH,URINE 7.5 (4.8-8.0); PROTEIN,URINE 30 mg/dl (Neg); UROBILINOGEN,URINE 0.2 E.U/dL (0.2-1.0)
[2024-07-13 19:19] LABS: CLARITY,URINE CLOUDY (Clear); UA COLLECTION TYPE CLN CATCH MIDSTREAM
[2024-07-13 19:21] LABS: AMORPHOUS PHOSPHATES 4+; BACTERIA,URINE 1+ /HPF (Neg); SQUAMOUS EPITHELIAL CELL,UR FEW /LPF (FEW)
[2024-07-13] MEDS: ondansetron/PF 4mg/2ml inj IV ONE (19:35)
[2024-07-13] MEDS: acetaminophen 1,000mg/100ml IV 100 ML IV ONE (19:36)
[2024-07-13] MEDS: fentaNYL/PF 50MCG/1 ML 2ML syringe IV ONE (19:36)
[2024-07-13 19:43] VITALS: O2SAT 99
--- NOTE | 2024-07-13 21:24 | RADIOLOGY REPORT ---
Clinical History Abdominal pain Comparison CT ABD/PEL on 03/14/2023, 328 images. Technique: All CT scans at this medical facility are performed using dose modulation techniques as appropriate t o a performed exam including the following: Automated exposure control was utilized; adjustment of th e mA and/or kV according to patient size; and use of iterative reconstruction technique. All CT studies are reported to the Dose Index Registry of the [employer]. Without Contrast Radiation Dose: CTDI (mGy): 9.16; DLP (mGy-cm): 354.6 VINICIUS ROJAS, [id number] Comparison: 03/14/23 FINDINGS: Lower chest: Bilateral fat-containing Bochdalek's hernia. Minimum atelectatic changes of inferior li ngula and right middle lobe. Liver: Hepatic calcified granulomata. Gallbladder: Unremarkable Pancreas: Diffuse pancreatic atrophy Spleen: Unremarkable Adrenals:Unremarkable Kidneys: Bilateral renal cysts Stomach: 2.8 x 2.5 cm gastric diverticulum seen posterior to the gastric fundus Bowel:Evaluation of the bowel is limited and incomplete due to lack of oral contrast. No acute bowel abnormality. Diverticulosis of the colon with no evidence of acute diverticulitis Urinary bladder:Unremarkable Reproductive organs: Hysterectomy Peritoneum, retroperitoneum, lymphadenopathy:Unremarkable Vascular structures: Atherosclerotic vascular calcification Abdominal wall: Anterior abdominal hernia repair Musculoskeletal:No acute osseous abnormality. Postsurgical changes related to left pubic and iliac b one ORIF. Healed left inferior pubic ramus. Degenerative changes of the imaged skeleton. Grade 1 a nterolisthesis of L5 over S1 with corresponding degenerative disc disease and facet arthropathy IMPRESSION: No evidence of acute intra-abdominal abnormality This report was electronically signed by Magno Mazariegos MD on 07/13/2024 9:20:45 PM.
[2024-07-13] MEDS: morphine 2 MG/ML inj. syringe IV ONE (21:45)
[2024-07-13 21:47] VITALS: BP 135/58; PULSE 88; RESP 16; TEMP 97.6
== END 2024-07-13 21:51 | disposition home or self-care (01) ==
LOC: ER 15:15
DX: R19.4 Change in bowel habit (principal); M25.551 Pain in right hip; M25.561 Pain in right knee; E11.9 Type 2 diabetes mellitus without complications; E78.00 Pure hypercholesterolemia, unspecified; I10 Essential (primary) hypertension; Z87.440 Personal history of urinary (tract) infections; Z90.710 Acquired absence of both cervix and uterus
CPT/HCPCS: 36415; 74176; 80053; 81001; 83690; 85025; 87088; 96365; 96375; 99285; J0131; J2270; J2405; J3010